=== PATIENT | male | born 1965 | race Caucasian/White ===

== ENCOUNTER 2017-08-07 03:43 | Inpatient (IN) | payer BC ==
[2017-08-07] MEDS ORDERED: ASPIRIN PO ONE (03:55)
[2017-08-07 04:38] LABS: Basophils % (Auto) 0.7 % (0.0-1.8); Eosinophils # (Auto) 0.2 K/mm3 (0.0-0.4); Eosinophils % (Auto) 3.4 % (0.0-4.3); Hematocrit 41.4 % (35.5-45.6); Hemoglobin 13.9 gm/dl (11.8-15.2); Lymphocytes # (Auto) 1.8 K/mm3 (1.2-5.4); Lymphocytes % (Auto) 27.9 % (13.4-35.0); Mean Corpuscular HGB Conc 34 % (32-34); Mean Corpuscular Hemoglobin 27 pg (28-32); Mean Corpuscular Volume 80 fl (84-94); Monocytes # (Auto) 0.5 K/mm3 (0.0-0.8); Monocytes % (Auto) 8.4 % (0.0-7.3); Platelet Count 201 K/mm3 (140-440); Red Blood Count 5.17 M/mm3 (3.65-5.03); Red Cell Distribution Width 14.1 % (13.2-15.2)
[2017-08-07 05:16] LABS: BUN/Creatinine Ratio 13; Blood Urea Nitrogen 10 mg/dL (9-20); Calcium 9.5 mg/dL (8.4-10.2); Hemolysis Index 9
[2017-08-07] MEDS ORDERED: ASPIRIN ONE (06:30)
--- NOTE | 2017-08-07 07:19 | Emergency Department Report ---
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 He did not take anything for her symptoms at presentation. He has a history of hyperlipidemia, hypertension and coronary artery disease with previous [place] in 2005. His new primary care group is Dr. hein/all born. He used to go to a physician compensation analyst through [employer] cardiology but has not been there in many years and has not had a stress test in many years as well. The patient says that he passed a kidney stone yesterday. No recent travel. No known aggravating or alleviating factors. He denies any tobacco or illicit drug use or abuse. - Related Data Allergies Allergy/AdvReac Type Severity Reaction Status Date / Time acetaminophen [From Percocet] Allergy Unknown Verified 08/07/17 03:54 iodine Allergy Unknown Verified 08/07/17 03:54 oxycodone [From Percocet] Allergy Unknown Verified 08/07/17 03:54 shellfish derived Allergy Unknown Verified 08/07/17 03:54 Heart Score - HEART Score History: Moderately suspicious EKG: Non-specific Age: 45-65 Risk factors: > 3 risk factors or hx of atherosclerotic disease Troponin: < normal limit HEART Score: 5 - Critical Actions Critical Actions: 4-6 pts:12-16.6% risk of adverse cardiac event. Should be admitted ED Review of Systems ROS: Stated complaint: CP Other details as noted in HPI Comment: All other systems reviewed and negative Constitutional: denies: chills, fever Eyes: denies: eye pain, eye discharge, vision change ENT: denies: ear pain, throat pain Respiratory: denies: cough, shortness of breath, wheezing Cardiovascular: chest pain. denies: palpitations Gastrointestinal: denies: abdominal pain, nausea, diarrhea Genitourinary: denies: urgency, dysuria Musculoskeletal: denies: back pain, joint swelling, arthralgia Skin: denies: rash, lesions Neurological: denies: headache, weakness, paresthesias ED Past Medical Hx - Past Medical History Previous Medical History?: Yes Hx Hypertension: Yes Hx Heart Attack/AMI: Yes Hx Kidney Stones: Yes Additional medical history: high choles - Surgical History Past Surgical History?: Yes Additional Surgical History: hernia. kidney stones - Social History Smoking Status: Never Smoker Substance Use Type: None ED Physical Exam - General Limitations: No Limitations - Other Other exam information: GENERAL: The patient is well-developed well-nourished. HENT: Normocephalic. Atraumatic. Patient has moist mucous membranes. EYES: Extraocular motions are intact. Pupils equal reactive to light bilaterally. NECK: Supple. Trachea is midline. CHEST/LUNGS: Clear to auscultation. There is no respiratory distress noted. HEART/CARDIOVASCULAR: Regular. There is no tachycardia. There is no murmur. ABDOMEN: Abdomen is soft, nontender. Patient has normal bowel sounds. There is no abdominal distention. SKIN: Skin is warm and dry. NEURO: The patient is awake, alert, and oriented. The patient is cooperative. The patient has no focal neurologic deficits. The patient has normal speech. MUSCULOSKELETAL: There is no tenderness or deformity. There is no limitation range of motion. There is no evidence of acute injury. ED Course Vital Signs 08/07/17 08/07/17 08/07/17 03:45 04:29 07:30 Temperature 98.5 F 98.4 F Pulse Rate 78 84 70 Respiratory 16 18 14 Rate Blood Pressure 138/72 Blood Pressure 138/72 132/74 [Left] O2 Sat by Pulse 96 97 Oximetry 08/07/17 07:59 Temperature Pulse Rate 74 Respiratory 26 H Rate Blood Pressure Blood Pressure [Left] O2 Sat by Pulse 95 Oximetry QUOC score - Quoc Score Age > 65: (0) No Aspirin use within the Past 7 Days: (0) No 3 or more CAD Risk Factors: (1) Yes 2 or more Angina events in past 24 hrs: (1) Yes Known CAD with more than 50% Stenosis: (0) No Elevated Cardiac Markers: (0) No ST Deviation Greater than 0.5mm: (0) No QUOC Score: 2 ED Medical Decision Making - Lab Data Result diagrams: 08/07/17 04:13 08/07/17 06:45 - EKG Data -: EKG Interpreted by Nj EKG shows normal: sinus rhythm, axis (left axis deviation), intervals, QRS complexes, ST-T waves Rate: normal - EKG Data When compared to previous EKG there are: previous EKG unavailable Interpretation: normal EKG (left axis deviation, rate of 89 bpm, no ST elevation VA) - Radiology Data Radiology results: image reviewed interpreted by me: Chest x-ray does not show any acute process. There are no pleural effusions, obvious pneumonia and there is no pneumothorax. - Medical Decision Making Patient presents with some intermittent chest pains since late last night, early this morning. The workup has been unremarkable thus far but the patient does have a significant cardiac history and has not seen a physician compensation analyst or had a stress test in many years. For this reason the patient will be admitted to the hospital for further evaluation and treatment and has been accepted for admission by the hospitalist service. - Differential Diagnosis VA, costochondritis, pneumonia, PE Critical Care Time: No Critical care attestation.: If time is entered above; I have spent that time in minutes in the direct care of this critically ill patient, excluding procedure time. ED Disposition Clinical Impression: History of coronary artery disease, Acute chest pain Disposition: OP ADMIT IP TO THIS HOSP Is pt being admited?: Yes Condition: Stable Time of Disposition: 10:00
--- NOTE | 2017-08-07 07:22 | XRay Report ---
FINAL REPORT EXAM: XR CHEST 1V AP HISTORY: CP TECHNIQUE: Two portable AP upright views of the chest were submitted. FINDINGS: Heart size mediastinum appear normal. The lungs are clear. Pleural fluid is not seen. The lungs are not congested. The bones and soft tissues reveal arthritic changes in the right shoulder. IMPRESSION: No active chest disease.
[2017-08-07] MEDS ORDERED: SODIUM CHLORIDE FLUSH SYRINGE 10 ML IV PRN (08:00)
[2017-08-07] MEDS ORDERED: NITROSTAT SL PRN (08:00)
[2017-08-07] MEDS ORDERED: AMBIEN PO PRN ×2 (08:00→10:55)
[2017-08-07] MEDS ORDERED: MORPHINE IV PRN (08:00)
--- NOTE | 2017-08-07 08:05 | History and Physical Report ---
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 He did not take anything for her symptoms at presentation. He has a history of hyperlipidemia, hypertension and coronary artery disease with previous [place] in 2005. His new primary care group is Dr. hein/all born. He used to go to a buoy tender through [employer] but has not been there in many years and has not had a stress test in many years as well. The patient says that he passed a kidney stone yesterday. No recent travel. No known aggravating or alleviating factors. He denies any tobacco or illicit drug use or abuse. Past Medical History: CAD, diabetes, hypertension, hyperlipidemia, other ( kidney stones, fatty liver, liver hemangioma) Past Surgical History: hernia repair Social history: , lives with family. denies: smoking, alcohol abuse, prescription drug abuse Family history: CAD Review of System: Constitutional: no fever, no chills, no weight loss Ears, eyes, nose, mouth and throat: no nasal congestion, no nasal discharge, no sinus pressure, no vision change, no red eye. Neck: No neck pain or rigidity. Cardiovascular: + chest pain, no orthopnea, no palpitations, no leg swelling Respiratory: No shortness of breath, no cough, no congestion, no wheezing Gastrointestinal: no abdominal pain, no nausea, no vomiting Genitourinary : no dysuria, no hematuria Musculoskeletal: no joint swelling or muscle ache Integumentary: no rash, no pruritis Neurological: no parathesias, no numbness, no tingling Endocrine: no cold or heat intolerance, no polyuria or polydipsia Hematologic/Lymphatic: no easy bruising, no easy bleeding, no gland swelling Allergic/Immunologic: no urticaria, no angioedema. Medications and Allergies Allergies Allergy/AdvReac Type Severity Reaction Status Date / Time acetaminophen [From Percocet] Allergy Unknown Verified 08/07/17 03:54 iodine Allergy Unknown Verified 08/07/17 03:54 oxycodone [From Percocet] Allergy Unknown Verified 08/07/17 03:54 shellfish derived Allergy Unknown Verified 08/07/17 03:54 Exam - Physical Exam Narrative exam: GENERAL: well-developed and well-nourished lying on bed appeared to be in no discomfort. HEENT: Normocephalic. Atraumatic. No conjunctival congestion or icterus. Patient has moist mucous membranes. NECK: Supple. Trachea midline. CHEST/LUNGS: Clear to auscultated bilaterally, breathing nonlabored. No wheezes crackles or rhonchi. HEART/CARDIOVASCULAR: Regular in rate and rhythm. S1 and S2 positive. ABDOMEN: Abdomen is soft, nontender. Patient has normal bowel sounds. SKIN: There is no rash. Warm and dry. NEURO: No focal motor deficit. Follows command. MUSCULOSKELETAL: No joint effusion or tenderness. EXTRIMITY: No edema, no cyanosis or clubbing. PSYCH: Cooperative. - Constitutional Vitals: Temp Pulse Resp BP Pulse Ox 98.5 F 84 18 138/72 96 08/07/17 04:29 08/07/17 04:29 08/07/17 04:29 08/07/17 04:29 08/07/17 04:29 Results - Labs CBC & Chem 7: 08/07/17 04:13 08/07/17 06:45 Labs: Abnormal lab results 08/07/17 08/07/17 Range/Units 04:13 04:13 RBC 5.17 H (3.65-5.03) M/mm3 MCV 80 L (84-94) fl MCH 27 L (28-32) pg Bosque % (Auto) 8.4 H (0.0-7.3) % Glucose 133 H (75-100) mg/dL Assessment and Plan Chest pain, need to rule out ACS -- will admit to telemetry bed - monitor with serial CE and EKG - will place on Aspirin, statin - as needed SL NTG and iv morphin for pain - Monitor BP, add betablocker and ACEI - order 2D echo and stress test in the am - cardiac diet after stress test, NPO now - provide DVT Px with lovenox
[2017-08-07] MEDS ORDERED: ZOFRAN IV PRN (08:06)
[2017-08-07 08:41] LABS: BUN/Creatinine Ratio 13; Blood Urea Nitrogen 9 mg/dL (9-20); Calcium 9.4 mg/dL (8.4-10.2); Chol/HDL Ratio 3.32 %; HDL Cholesterol 43 mg/dL (40-59); Hemolysis Index 26; LDL Cholesterol,Direct 61 mg/dL (50-130)
--- NOTE | 2017-08-07 09:26 | Consultation ---
<JOSE A GARCÍA - Last Filed: 08/07/17 09:33> History of Present Illness Consult date: 08/07/17 Requesting physician: AMISHA DELUCA Consult reason: chest pain History of present illness: The pt is a 52 YO male with a past medical history significant for HTN, HLP, DM , CAD s/p AMI in 2005 at [facility] per pt report, kidney stones, hernia repair, fatty liver, liver hemangioma. He is previously unknown to our practice. He reports that following his AMI in 2005, he saw a senior property manager in [place] a few times but has not had any cardiology follow up in approx 10 years. He presented with c/o chest pain since yesterday with worsening since yesterday evening. He describes his chest pain as a nonradiating, nonexertional, intermittent midsternal pressure which feels somewhat similar to his AMI in 2006. The pain is associated with some palpitations and a bout of nausea. He denies any SOB, vomiting, diaphoresis, dizziness or syncope. He states that he passed a kidney stone yesterday. He reports a strong paternal family history of CAD - his father had first AMI around 35 YOA. Troponins are negative for AMI x 1 set, ECG shows no acute ischemic changes. Past History Past Medical History: CAD, diabetes, hypertension, hyperlipidemia, other ( kidney stones, fatty liver, liver hemangioma) Past Surgical History: hernia repair Social history: , lives with family. denies: smoking, alcohol abuse, prescription drug abuse Family history: CAD Medications and Allergies Allergies Allergy/AdvReac Type Severity Reaction Status Date / Time acetaminophen [From Percocet] Allergy Unknown Verified 08/07/17 03:54 iodine Allergy Unknown Verified 08/07/17 03:54 oxycodone [From Percocet] Allergy Unknown Verified 08/07/17 03:54 shellfish derived Allergy Unknown Verified 08/07/17 03:54 Active Meds: Active Medications Aspirin (Ecotrin) 325 mg PO QDAY BONNIE Atorvastatin Calcium (Lipitor) 80 mg PO QHS BONNIE Docusate Sodium (Colace) 100 mg PO BID BONNIE Enoxaparin Sodium (Lovenox) 30 mg SUB-Q QDAY BONNIE Morphine Sulfate (Morphine) 2 mg IV Q5MIN PRN PRN Reason: Chest Pain Nitroglycerin (Nitrostat) 0.4 mg SL Q5M PRN PRN Reason: Chest Pain Ondansetron HCl (Zofran) 4 mg IV Q8H PRN PRN Reason: N/V unrelieved by Reglan Pantoprazole Sodium (Protonix) 40 mg PO QDAY BONNIE Sodium Chloride (Sodium Chloride Flush Syringe 10 Ml) 10 ml IV PRN PRN PRN Reason: LINE FLUSH Zolpidem Tartrate (Ambien) 10 mg PO QHS PRN PRN Reason: Sleep Review of Systems Constitutional: no weight loss, no weight gain, no fever, no chills, no sweats Ears, nose, mouth and throat: no ear pain, no nose pain, no sinus pressure, no sinus pain Cardiovascular: chest pain, palpitations, high blood pressure, no orthopnea, no rapid/irregular heart beat, no edema, no syncope, no lightheadedness, no shortness of breath, no dyspnea on exertion, no leg edema, no decreased exercise tolerance Respiratory: no cough, no shortness of breath, no dyspnea on exertion, no congestion, no wheezing, no pain on inspiration Gastrointestinal: nausea, no abdominal pain, no vomiting, no diarrhea, no constipation, no change in bowel habits Genitourinary Male: no dysuria, no hematuria, no discharge, no urinary frequency , no urinary hesitancy Musculoskeletal: no neck stiffness, no neck pain, no shooting arm pain, no arm numbness/tingling, no low back pain, no shooting leg pain, no leg numbness/ tingling, no redness of joints Integumentary: no rash, no pruritis, no redness, no sores, no wounds Neurological: no head injury, no paralysis, no weakness, no parathesias, no numbness, no tingling, no seizures, no syncope Psychiatric: no anxiety Endocrine: no cold intolerance, no heat intolerance Hematologic/Lymphatic: no easy bruising, no easy bleeding Allergic/Immunologic: no urticaria, no wheezing Physical Examination Vital Signs Pulse Resp BP 78 16 138/72 08/07/17 03:45 08/07/17 03:45 08/07/17 03:45 General appearance: no acute distress HEENT: Positive: PERRL, Normocephaly, Mucus Membranes Moist Neck: Positive: neck supple, trachea midline Cardiac: Positive: Reg Rate and Rhythm, S1/S2 Lungs: Positive: clear to auscultation Neuro: Positive: Grossly Intact, Cranial Nerve 2-12 Intact Abdomen: Positive: Soft. Negative: Tender Skin: Positive: Clear. Negative: Rash, Wound Musculoskeletal: No Fluid Collection, No Pain, Normal Range of Motion Extremities: Absent: edema Results 08/07/17 04:13 08/07/17 06:45 Lipids 08/07/17 Range/Units 06:45 Triglycerides 198 H (2-149) mg/dL Cholesterol 143 (50-199) mg/dL HDL Cholesterol 43 (40-59) mg/dL Cholesterol/HDL Ratio 3.32 % CBC 08/07/17 Range/Units 04:13 WBC 6.3 (4.5-11.0) K/mm3 RBC 5.17 H (3.65-5.03) M/mm3 Hgb 13.9 (11.8-15.2) gm/dl Hct 41.4 (35.5-45.6) % Plt Count 201 (140-440) K/mm3 Lymph # 1.8 (1.2-5.4) K/mm3 Sutton # 0.5 (0.0-0.8) K/mm3 Eos # 0.2 (0.0-0.4) K/mm3 Baso # 0.0 (0.0-0.1) K/mm3 Comprehensive Metabolic Panel 08/07/17 08/07/17 Range/Units 04:13 06:45 Sodium 141 141 (137-145) mmol/L Potassium 4.0 4.0 (3.6-5.0) mmol/L Chloride 102.0 101.1 (98-107) mmol/L Carbon Dioxide 23 22 (22-30) mmol/L BUN 10 9 (9-20) mg/dL Creatinine 0.8 0.7 L (0.8-1.5) mg/dL Glucose 133 H 148 H (75-100) mg/dL Calcium 9.5 9.4 (8.4-10.2) mg/dL - Imaging and Cardiology EKG: report reviewed, image reviewed EKG interpretations - Telemetry EKG Rhythm: Sinus Rhythm - EKG Sinus rhythms and dysrhythmias: sinus rhythm AV and intraventricular conduction: intraventricular conducti Assessment and Plan Assessment: Chest pain, atypical - trop negative for AMI x 1 set; ECG with no acute ischemic changes CAD s/p AMI in 2005 at [facility] per pt report HTN HLP DM H/o kidney stones H/o fatty liver and liver hemangioma Family history of CAD Plan: Obtain echo. Obtain second set of Moisés. Cont ASA, statin, coreg, lisinopril. Proceed with lexiscan MPI stress test. Await findings. Assessment and plan reviewed with pt and pt's at bedside. The patient has been seen in conjunction with Dr. Ibarra who agrees with the assessment and plan of care. <LEONEL IBARRA M - Last Filed: 08/07/17 12:07> Medications and Allergies Active Meds: Active Medications Aspirin (Ecotrin) 325 mg PO QDAY BONNIE Atorvastatin Calcium (Lipitor) 80 mg PO QHS BONNIE Carvedilol (Coreg) 3.125 mg PO BID BONNIE Docusate Sodium (Colace) 100 mg PO BID BONNIE Enoxaparin Sodium (Lovenox) 40 mg SUB-Q QDAY@1000 BONNIE Lisinopril (Zestril) 2.5 mg PO QDAY BONNIE Morphine Sulfate (Morphine) 2 mg IV Q5MIN PRN PRN Reason: Chest Pain Nitroglycerin (Nitrostat) 0.4 mg SL Q5M PRN PRN Reason: Chest Pain Ondansetron HCl (Zofran) 4 mg IV Q8H PRN PRN Reason: N/V unrelieved by Reglan Pantoprazole Sodium (Protonix) 40 mg PO QDAY BONNIE Sodium Chloride (Sodium Chloride Flush Syringe 10 Ml) 10 ml IV PRN PRN PRN Reason: LINE FLUSH Zolpidem Tartrate (Ambien) 10 mg PO QHS PRN PRN Reason: Insomnia Physical Examination Vital Signs Pulse Resp BP 78 16 138/72 08/07/17 03:45 08/07/17 03:45 08/07/17 03:45 Results 08/07/17 04:13 08/07/17 06:45 Lipids 08/07/17 Range/Units 06:45 Triglycerides 198 H (2-149) mg/dL Cholesterol 143 (50-199) mg/dL HDL Cholesterol 43 (40-59) mg/dL Cholesterol/HDL Ratio 3.32 % CBC 08/07/17 Range/Units 04:13 WBC 6.3 (4.5-11.0) K/mm3 RBC 5.17 H (3.65-5.03) M/mm3 Hgb 13.9 (11.8-15.2) gm/dl Hct 41.4 (35.5-45.6) % Plt Count 201 (140-440) K/mm3 Lymph # 1.8 (1.2-5.4) K/mm3 Sutton # 0.5 (0.0-0.8) K/mm3 Eos # 0.2 (0.0-0.4) K/mm3 Baso # 0.0 (0.0-0.1) K/mm3 Comprehensive Metabolic Panel 08/07/17 08/07/17 Range/Units 04:13 06:45 Sodium 141 141 (137-145) mmol/L Potassium 4.0 4.0 (3.6-5.0) mmol/L Chloride 102.0 101.1 (98-107) mmol/L Carbon Dioxide 23 22 (22-30) mmol/L BUN 10 9 (9-20) mg/dL Creatinine 0.8 0.7 L (0.8-1.5) mg/dL Glucose 133 H 148 H (75-100) mg/dL Calcium 9.5 9.4 (8.4-10.2) mg/dL Assessment and Plan No chest pain now Stress test today
[2017-08-07 09:45] VITALS: BP 132/74
[2017-08-07] MEDS ORDERED: PROTONIX PO SCH (10:00)
[2017-08-07] MEDS ORDERED: LOVENOX SUB-Q SCH (10:00)
[2017-08-07] MEDS ORDERED: COREG PO SCH (10:00)
[2017-08-07] MEDS ORDERED: COLACE PO SCH (10:00)
[2017-08-07] MEDS ORDERED: ZESTRIL PO SCH (10:00)
--- NOTE | 2017-08-07 13:35 | Event Note ---
Date: 08/07/17 Lexiscan MPI stress test this AM negative for ischemia, EF 66%. Currently stable cardiac status. Pt may discharge home from cardiology standpoint. Follow up in our [place] office with Rosamaria Estevez NP, on 08/21/2017 @ 1:00PM. Ronit GARCÍA NP / DR. DIAL
--- NOTE | 2017-08-07 14:20 | Discharge Summary ---
Providers - Providers Date of Admission: 08/07/17 08:06 Date of discharge: 08/07/17 Attending physician: AMISHA DELUCA 08/07/17 Consult to Cardiac Rehabilitation [CONS] Routine Reason For Exam: Phase I 08/07/17 08:00 Consult to Cardiology [CONS] Routine Consulting Provider: BRANDON SPRINGER Reason For Exam: chest pain Primary care physician: SHAHEEN DUQUE Hospitalization Condition: Stable Hospital course: Discharge diagnosis: Chest pain, likely GERD - added PPI HTN, on Toprol Xl HLD, crestor Borderline DM, on metoprolol h/o CAD, on Asp, crestor, BB Disposition: - TO HOME OR SELFCARE Time spent for discharge: 32 minutes Core Measure Documentation - Palliative Care Palliative Care/ Comfort Measures: Not Applicable - Core Measures Any of the following diagnoses?: none Exam - Physical Exam Narrative exam: GENERAL: well-developed and well-nourished Male lying on bed appeared to be in no discomfort. HEENT: Normocephalic. Atraumatic. No conjunctival congestion or icterus. Patient has moist mucous membranes. NECK: Supple. Trachea midline. CHEST/LUNGS: Clear to auscultated bilaterally, breathing nonlabored. No wheezes crackles or rhonchi. HEART/CARDIOVASCULAR: Regular in rate and rhythm. S1 and S2 positive. ABDOMEN: Abdomen is soft, nontender. Patient has normal bowel sounds. SKIN: There is no rash. Warm and dry. NEURO: No focal motor deficit. Follows command. MUSCULOSKELETAL: No joint effusion or tenderness. EXTRIMITY: No edema, no cyanosis or clubbing. PSYCH: Cooperative. - Constitutional Vitals: Temp Pulse Resp BP Pulse Ox 98.4 F 74 26 H 132/74 95 08/07/17 07:30 08/07/17 07:59 08/07/17 07:59 08/07/17 07:30 08/07/17 07:59 Plan Activity: advance as tolerated Weight Bearing Status: Weight Bear as Tolerated Diet: low fat, low salt Follow up with: SHAHEEN DUQUE MD [Primary Care Provider] - 3-5 Days Prescriptions: Pantoprazole [Protonix TAB] 40 mg PO QDAY #30 tablet
[2017-08-08] MEDS ORDERED: LOVENOX SUB-Q SCH (10:00)
[2017-08-08] MEDS ORDERED: ECOTRIN PO SCH (10:00)
== END 2017-08-07 16:13 | disposition home or self-care (01) | DRG 392 ==
LOC: ED 03:43 → 4A 08:06
PROVIDERS: ADMIT Internal Medicine; ATTEND Internal Medicine
DX: K21.9 Gastro-esophageal reflux disease without esophagitis (principal); I25.10 Atherosclerotic heart disease of native coronary artery without angina pectoris; E78.5 Hyperlipidemia, unspecified; E11.9 Type 2 diabetes mellitus without complications; I10 Essential (primary) hypertension; I25.2 Old myocardial infarction; Z91.041 Radiographic dye allergy status; Z88.5 Allergy status to narcotic agent; Z91.013 Allergy to seafood; Z87.442 Personal history of urinary calculi; Z82.49 Family history of ischemic heart disease and other diseases of the circulatory system
CPT/HCPCS: 36415; 71045; 78452; 80048; 80061; 83036; 84484; 85025; 93005; 93010; 93017; 93306; A9502

== ENCOUNTER 2019-06-11 21:16 | Emergency (ER) | payer BC ==
[2019-06-11 21:25] VITALS: BP 152/64
== END 2019-06-11 22:00 | disposition left against medical advice (07) ==
LOC: ED 21:16
DX: M79.10 Myalgia, unspecified site (principal); Z53.21 Procedure and treatment not carried out due to patient leaving prior to being seen by health care provider

== ENCOUNTER 2019-12-05 22:43 | Emergency (ER) | payer BC ==
[2019-12-05] MEDS ORDERED: SODIUM CHLORIDE 0.9% 1000 ML 1,000 ML IV ONE (23:19)
[2019-12-05] MEDS ORDERED: ONDANSETRON 4 MG/2 ML INJ IV ONE (23:19)
--- NOTE | 2019-12-05 23:47 | Cat Scan Report ---
CT ABDOMEN AND PELVIS WITHOUT CONTRAST INDICATION: Left flank pain: Stone disease suspected. COMPARISON: CT abdomen and pelvis without contrast from 02/25/2019. TECHNIQUE: Axial, coronal and sagittal CT imaging of the abdomen and pelvis was performed without co ntrast. Lack of intravenous contrast limits evaluation of the vascular and solid organs. All CT sca ns at this location are performed using CT dose reduction for ALARA by means of automated exposure co ntrol. FINDINGS: LOWER CHEST: No significant abnormality. LIVER: No significant abnormality. BILIARY: No significant abnormality. PANCREAS: No significant abnormality. SPLEEN: No significant abnormality. ADRENALS: No significant abnormality. KIDNEYS AND URETERS: There are 2 nonobstructive left renal stones measuring up to 2.5 mm. A left UVJ stone measures 7.1 mm with secondary mild hydroureteronephrosis. No additional significant abnormalit y. GI TRACT: No significant abnormality of the stomach, small bowel or colon. Unremarkable appendix. PERITONEUM: No free fluid. No free air. No fluid collection. LYMPH NODES: No significant adenopathy. VASCULATURE: The aorta is normal in caliber and mildly calcified. URINARY BLADDER: Mostly collapsed without a distinct abnormality. REPRODUCTIVE ORGANS: No significant abnormality. ADDITIONAL FINDINGS: None. SKELETAL SYSTEM: No acute abnormality. Degenerative changes are seen along the spine. IMPRESSION: 1. 7.1 mm left UVJ stone with secondary mild obstruction. 2. Nonobstructive left renal stones as above. Signer Name: Jack Lennon MD Signed: 12/05/2019 11:42 PM Workstation Name: [id number]
[2019-12-06 00:20] LABS: Bilirubin,Urine NEG (Negative); Blood,Urine LG (Negative); Color,Urine Yellow (Yellow); Mucus,Urine FEW /HPF
[2019-12-06 00:22] LABS: RBC,Urine > 182.0 /HPF (0.0-6.0)
[2019-12-06 02:11] LABS: Basophils % (Auto) 0.5 % (0.0-1.8); Eosinophils # (Auto) 0.2 K/mm3 (0.0-0.4); Eosinophils % (Auto) 3.1 % (0.0-4.3); Hematocrit 38.9 % (35.5-45.6); Lymphocytes # (Auto) 1.3 K/mm3 (1.2-5.4); Lymphocytes % (Auto) 21.1 % (13.4-35.0); Mean Corpuscular HGB Conc 34 % (32-34); Mean Corpuscular Volume 81 fl (84-94); Monocytes # (Auto) 0.5 K/mm3 (0.0-0.8); Monocytes % (Auto) 8.9 % (0.0-7.3); Platelet Count 200 K/mm3 (140-440); Red Blood Count 4.81 M/mm3 (3.65-5.03); Red Cell Distribution Width 13.7 % (13.2-15.2)
[2019-12-06 02:28] LABS: Alanine Aminotransferase 25 units/L (7-56); Albumin 3.9 g/dL (3.9-5); BUN/Creatinine Ratio 12; Blood Urea Nitrogen 12 mg/dL (9-20); Calcium 9.5 mg/dL (8.4-10.2); Hemolysis Index 7
[2019-12-06] MEDS ORDERED: TAMSULOSIN 0.4 MG CAP PO ONE (02:43)
[2019-12-06] MEDS ORDERED: KETOROLAC 30 MG/1 ML INJ IV ONE (02:43)
[2019-12-06] MEDS ORDERED: cefTRIAXone/NS 1 GM/50 ML 1 GM/50 ML BAG IV ONE (02:44)
--- NOTE | 2019-12-06 03:42 | Emergency Department Report ---
ED Abdominal Pain HPI - General Chief Complaint: Abdominal Pain Stated Complaint: LEFT SIDE BACK PAIN Source: patient Mode of arrival: Ambulatory Limitations: No Limitations - History of Present Illness Initial Comments: Patient is 54-year-old male with a history of [id number]-[id number] diabetes, hypertension and chronic recurrent kidney stones who presents to the ED with complaint of acute onset persistent left flank pain that radiates to the left lower quadrant area with nausea for the last 6 hours. Patient states that he took Toradol 10 mg p.o. from an old prescription that had been given to him by his primary care physician and it seemed to help resolve the pain such that in arrival in the ED, the pain was minimal. Patient denies dizziness, syncope, dysuria, urinary frequency and urgency, traumatic injury, testicular pain, fever, chills, nausea and vomiting, diarrhea or low back pain. Patient states that the pain is typical of his chronic recurrent kidney stones. Patient states that he sees urologist Dr. Corado for his chronic recurrent kidney stones. MD Complaint: abdominal pain, flank pain (LEFT) -: Sudden, hour(s) (6) Location: L flank Radiation: LLQ, L flank Migration to: no migration Severity: mild Severity scale (0 -10): 2 Quality: stabbing, sharp Consistency: intermittent Improves With: nothing Worsens With: nothing Associated Symptoms: denies other symptoms, nausea. denies: vomiting, diarrhea, fever, chills, constipation, dysuria, hematemesis, hematochezia, melena, hematuria, anorexia, other Treatments Prior to Arrival: NSAIDs (Ketorolac 10mg) - Related Data Previous Rx's Medication Instructions Recorded Last Taken Type Pantoprazole [Protonix TAB] 40 mg PO QDAY #30 tablet 08/07/17 Unknown Rx Ketorolac [Toradol] 10 mg PO Q6H PRN #20 tablet 12/06/19 Unknown Rx Ondansetron [Zofran Odt] 4 mg PO Q6HR PRN #20 tab.rapdis 12/06/19 Unknown Rx Sulfamethoxazole/Trimethoprim 1 each PO BID #20 tablet 12/06/19 Unknown Rx [Bactrim DS TAB] Tamsulosin [Flomax] 0.4 mg PO QDAY #14 cap 12/06/19 Unknown Rx Allergies Allergy/AdvReac Type Severity Reaction Status Date / Time acetaminophen [From Percocet] Allergy Unknown Verified 08/07/17 03:54 iodine Allergy Unknown Verified 08/07/17 03:54 oxycodone [From Percocet] Allergy Unknown Verified 08/07/17 03:54 shellfish derived Allergy Unknown Verified 08/07/17 03:54 ED Review of Systems ROS: Stated complaint: LEFT SIDE BACK PAIN Other details as noted in HPI Constitutional: denies: chills, fever Eyes: denies: eye pain, eye discharge, vision change ENT: denies: ear pain, throat pain Respiratory: denies: cough, shortness of breath, wheezing Cardiovascular: denies: chest pain, palpitations Endocrine: no symptoms reported Gastrointestinal: abdominal pain (left flank and LLQ pain), nausea. denies: vomiting, diarrhea Genitourinary: hematuria. denies: urgency, dysuria, testicular pain, testicular mass Musculoskeletal: denies: back pain, joint swelling, arthralgia Skin: denies: rash, lesions Neurological: denies: headache, weakness, paresthesias Psychiatric: denies: anxiety, depression Hematological/Lymphatic: denies: easy bleeding, easy bruising ED Past Medical Hx - Past Medical History Previous Medical History?: Yes Hx Hypertension: Yes Hx Heart Attack/AMI: Yes Hx Kidney Stones: Yes Additional medical history: high choles - Surgical History Past Surgical History?: Yes Additional Surgical History: hernia. kidney stones - Social History Smoking Status: Never Smoker Substance Use Type: None - Medications Home Medications: Home Medications Medication Instructions Recorded Confirmed Last Taken Type Pantoprazole [Protonix TAB] 40 mg PO QDAY #30 tablet 08/07/17 Unknown Rx Ketorolac [Toradol] 10 mg PO Q6H PRN #20 tablet 12/06/19 Unknown Rx Ondansetron [Zofran Odt] 4 mg PO Q6HR PRN #20 tab.rapdis 12/06/19 Unknown Rx Sulfamethoxazole/Trimethoprim 1 each PO BID #20 tablet 12/06/19 Unknown Rx [Bactrim DS TAB] Tamsulosin [Flomax] 0.4 mg PO QDAY #14 cap 12/06/19 Unknown Rx ED Physical Exam - General Limitations: No Limitations General appearance: alert, in no apparent distress - Head Head exam: Present: atraumatic, normocephalic, normal inspection - Eye Eye exam: Present: normal appearance, PERRL, EOMI Pupils: Present: normal accommodation - ENT ENT exam: Present: normal exam, normal orophraynx, mucous membranes moist, TM's normal bilaterally, normal external ear exam - Neck Neck exam: Present: normal inspection, full ROM - Respiratory Respiratory exam: Present: normal lung sounds bilaterally. Absent: respiratory distress, wheezes, rhonchi, chest wall tenderness, accessory muscle use, decreased breath sounds - Cardiovascular Cardiovascular Exam: Present: regular rate, normal rhythm, normal heart sounds. Absent: systolic murmur, diastolic murmur, rubs, gallop - GI/Abdominal GI/Abdominal exam: Present: soft, normal bowel sounds. Absent: tenderness, guarding, rebound, hyperactive bowel sounds, hypoactive bowel sounds, organomegaly - Extremities Exam Extremities exam: Present: normal inspection, full ROM, normal capillary refill. Absent: pedal edema, joint swelling, calf tenderness - Back Exam Back exam: Present: normal inspection, full ROM. Absent: tenderness, CVA tenderness (R), muscle spasm, paraspinal tenderness, vertebral tenderness - Neurological Exam Neurological exam: Present: alert, oriented X3, CN II-XII intact, normal gait, reflexes normal - Psychiatric Psychiatric exam: Present: normal affect, normal mood - Skin Skin exam: Present: warm, dry, intact, normal color. Absent: rash ED Course Vital Signs 12/05/19 12/06/19 12/06/19 22:47 03:27 04:13 Temperature 98.7 F 97.6 F Pulse Rate 100 H 63 Respiratory 18 18 18 Rate Blood Pressure 153/79 Blood Pressure 132/70 [Left] O2 Sat by Pulse 100 100 Oximetry ED Medical Decision Making - Lab Data Result diagrams: 12/06/19 00:09 12/06/19 00:09 - Radiology Data Radiology results: report reviewed, image reviewed CT abdomen pelvis without contrast showed 2 nonobstructive left renal stones measuring up to 2.5 mm. A left UVJ stone measures 7.1 mm with mild hydroureteronephrosis. No additional significant abnormality. No significant abnormality of the stomach, small bowel, colon, and unremarkable appendix. - Medical Decision Making This is 54-year-old male with a history of [id number] sukumar betes, hypertension and chronic recurrent kidney stones who presents to the ED with complaint of acute onset persistent left flank pain that radiates to the left lower quadrant area with nausea for the last 6 hours. Patient states that he took Toradol 10 mg p.o. from an old prescription that had been given to him by his primary care physician and it seemed to help resolve the pain such that in arrival in the ED, the pain was minimal. In the ED, patient is alert and oriented x3 and is not in distress. Physical exam is unremarkable with no palpable tenderness in the left flank. Patient was treated in the ED with normal saline 1 L IV bolus and antiemetics as well. Lab test results were rev iewed and showed hyperglycemia 190 mg/dL and mildly urinary tract infection. The rest of the lab test results were nonactionable. The abdomen pelvis CT scan without contrast showed a 7.1 mm left UVJ stone with secondary mild obstruction. There were other nonobstructive left renal stones. On reev aluation, patient's pain is well controlled medications. Patient had already taken Toradol 10 mg prior to arrival in the ED and throughout the ED course of treatment, patient complained of no pain in the left flank. Patient case was discussed with the ED attending physician Dr. Mili Tong who agreed with the plan of care to discharge the patient to his urologist Dr. Calvillo for follow-up. Patient promised to follow-up with Dr. Calvillo his urologist in 2 days for reevaluation. Patient was also discharged home on Flomax, antibiotics and more Toradol as well as antiemetics. Patient was however advised to return to the ED immediately if symptoms get worse. - Differential Diagnosis kidney stones; dehydration; UTI; Colitis; Diverticulitis Critical care attestation.: If time is entered above; I have spent that time in minutes in the direct care of this critically ill patient, excluding procedure time. ED Disposition Clinical Impression: Kidney stone on left side, Acute abdominal pain in left flank Disposition: DC-01 TO HOME OR SELFCARE Is pt being admited?: No Does the pt Need Aspirin: No Condition: Stable Instructions: Kidney Stones (ED), Renal Colic (ED), Flank Pain (ED) Additional Instructions: Take medication with food, drink plenty of fluids and follow-up with your urologist Dr. Calvillo in 2 to 3 days for reevaluation. Return to the ED immediately if symptoms get worse. Prescriptions: Sulfamethoxazole/Trimethoprim [Bactrim DS TAB] 1 each PO BID #20 tablet Tamsulosin [Flomax] 0.4 mg PO QDAY #14 cap Ketorolac [Toradol] 10 mg PO Q6H PRN #20 tablet PRN Reason: Pain Ondansetron [Zofran Odt] 4 mg PO Q6HR PRN #20 tab.rapdis PRN Reason: Nausea Referrals: LILIA CALVILLO MD [Staff Physician] - 3-5 Days Time of Disposition: 03:44 Print Language: MAURITIAN
[2019-12-06 04:14] VITALS: BP 132/70
== END 2019-12-06 04:14 | disposition home or self-care (01) ==
LOC: ED 22:43
DX: N20.0 Calculus of kidney (principal); I10 Essential (primary) hypertension; E78.00 Pure hypercholesterolemia, unspecified; I25.2 Old myocardial infarction; Z88.6 Allergy status to analgesic agent; Z91.013 Allergy to seafood
CPT/HCPCS: 36415; 74176; 80053; 81001; 83690; 85025; 87086; 96365; 96375; 99284; J0696; J1885; J2405; J7030

== ENCOUNTER 2019-12-28 10:37 | Outpatient (CLI) | payer BC ==
--- NOTE | 2019-12-28 13:16 | Cat Scan Report ---
CT abdomen pelvis wo con INDICATION: CALCULUS OF KIDNEY. TECHNIQUE: All CT scans at this location are performed using the following dose modulation technique: Automated exposure control. CONTRAST: None. COMPARISON: CT abdomen and pelvis 12/05/2019 CT ABDOMEN: Evaluation of the parenchymal organs demonstrates 2 small nonobstructing left renal stone s measuring 2 mm. The remaining parenchymal organs are unremarkable. Negative for abdominal mass, fluid or inflammation. The bowel is not dilated or thickened. A few small mesenteric nodes are associated with mild increased density. This is more prominent. CT PELVIS: Dilatation of the left ureter extends the level of a 7 mm stone at the distal ureterovesic al junction. IMPRESSION: 1. Persistent 7 mm stone left ureterovesical junction with associated ureteral dilatation. 2. Small nonobstructing left calyceal stones. 3. Mild increased density with small nodes at the root of the mesentery has a reactive appearance. Signer Name: Seng Miller MD Signed: 12/28/2019 1:12 PM Workstation Name: [id number]
== END 2019-12-28 10:38 | disposition home or self-care (01) ==
LOC: CT 10:37
PROVIDERS: ATTEND Urology
DX: N20.2 Calculus of kidney with calculus of ureter (principal); N28.82 Megaloureter
CPT/HCPCS: 74176